=== PATIENT | male | born 1965 | race Caucasian/White ===

== ENCOUNTER → 2022-10-06 | Emergency (ER) | payer BC ==
[~2022-10-06] VITALS: Ht 175.3 cm; Wt 68.0 kg
[2022-10-06 18:53] VITALS: BP_SYST 116
[2022-10-06 20:37] LABS: MEAN CORPUSCULAR HEMOGLOBIN 30 pg (27-31); MEAN CORPUSCULAR HGB CONC 34 % (32-36); MEAN CORPUSCULAR VOLUME 90 fL (79.0-98.0); PLATELET COUNT (AUTO) 276 K/uL (130-430); RED CELL DISTRIBUTION WIDTH 13.6 % (9.0-15.0); WHITE BLOOD COUNT (AUTO) 10.6 K/uL (4.8-10.8)
[2022-10-06 20:43] LABS: HEMOGLOBIN 20.8 g/dL (14.0-18.0)
[2022-10-06 21:36] LABS: INR 2.3 (0.80-1.20)
[2022-10-06 21:47] LABS: CALCIUM 10.3 mg/dL (8.4-11.0); CREATININE 1.36 mg/dL (0.55-1.30)
[2022-10-06 22:01] LABS: ALBUMIN 4.6 g/dL (3.4-4.8); TOTAL BILIRUBIN 1.3 mg/dL (0.0-1.0)
[2022-10-06 23:56] LABS: BAND % (MANUAL) 7 % (0-6); BASOPHILS % (MANUAL) 0 % (0-2); EOSINOPHILS % (MANUAL) 1 % (0-7); LYMPHOCYTES % (MANUAL) 13 % (20-46); MONOCYTES % (MANUAL) 13 % (0-11)
== END | disposition home or self-care (01) ==
LOC: SED 18:31
DX: K92.0 Hematemesis (principal); R10.13 Epigastric pain; R19.7 Diarrhea, unspecified; Z79.899 Other long term (current) drug therapy
CPT/HCPCS: 36415; 76376; 80053; 82150; 83605; 83690; 85007; 85027; 85610-TC; 85730-TC; 86886; 86900; 86901; 99284